=== PATIENT | female | born 1980 | race Caucasian/White ===

== ENCOUNTER 2020-05-27 13:55 | Emergency (ER) | payer BC ==
[~2020-05-27] VITALS: Ht 162.6 cm; Wt 68.0 kg
--- NOTE | 2020-05-27 14:10 | NUR ---
Patient came in to the er c/o left wrist pain. On room air, breathing evenly and unlabored. connected to the monitor and pulse ox. kept comfortable, will continue to monitor accordingly.
--- NOTE | 2020-05-27 14:24 | NUR ---
ge at bedside for x-ray
[2020-05-27 15:07] VITALS: BP 110/66
--- NOTE | 2020-05-27 15:08 | NUR ---
Patient discharged to home in stable condition. Written and verbal after care instructions given. Patient verbalizes understanding of instruction.
== END 2020-05-27 15:07 | disposition home or self-care (01) ==
LOC: ER 14:03
DX: S52.572A Other intraarticular fracture of lower end of left radius, initial encounter for closed fracture (principal); W18.39XA Other fall on same level, initial encounter; Y93.89 Activity, other specified; Y92.89 Other specified places as the place of occurrence of the external cause; Y99.8 Other external cause status
CPT/HCPCS: 73110